=== PATIENT | female | born 1945 | race Caucasian/White ===

== ENCOUNTER 2019-10-29 06:29 | Day surgery (SDC) | payer OTHER ==
[2019-10-24 11:20] VITALS: BMI 21.7
--- NOTE | 2019-10-29 07:21 | HP ---
CHIEF COMPLAINT: Major depressive disorder PCP: Dr. Valles, [facility], Oncologist: Dr. Matthew Frausto, [facility] [place] Primary Psychiatrist: Stevie Eaton HISTORY OF PRESENT ILLNESS: 74 year-old female with a PMH significant for peritoneal carcinometosis (on avastrin q3w at [facility] [place]), h/o DVT and PE on Eliquis, and major depressive disorder /anxiety with a previous in-patient psych hospitalization in April 2019 ([facility]). She presents today for her first ECT treatment. Recent Events: * none reported PAST MEDICAL HISTORY: Peritoneal carcinometosis DVT 2018 PE 2018 Major depression Anxiety PAST SURGICAL HISTORY: Partial hysterectomy 2017 Total hysterectomy 2018 Social History: , lives with family Smoking: never Alcohol: no Drugs:no Allergies No Known Drug Allergies Allergy (Verified 10/24/19 10:55) HOME MEDICATIONS: Home Medications Medication Instructions Recorded Atorvastatin Ca [Lipitor] 10 mg PO HS 10/24/19 Brexpiprazole [Rexulti] 0.5 mg PO HS 10/24/19 Bupropion HCl [Bupropion Xl] 150 mg PO DAILY 10/24/19 Magnesium Oxide [Magnesium] 400 mg PO HS 10/24/19 Melatonin/Pyridoxine HCl (B6) 2 each PO HS 10/24/19 [Melatonin 3 mg Tablet] Pantoprazole Sodium 40 mg PO DAILY PRN 10/24/19 Rivaroxaban [Xarelto -] 20 mg PO DAILY 10/24/19 Sennosides [Senokot] 8.6 mg PO DAILY PRN 10/24/19 Travoprost [Travatan Z] 5 ml OU HS 10/24/19 Vilazodone Hydrochloride [Viibryd] 40 mg PO DAILY 10/24/19 clonazePAM [Klonopin -] 0.5 mg PO TID PRN 10/24/19 REVIEW OF SYSTEMS CONSTITUTIONAL: Absent: fever, chills, diaphoresis, generalized weakness, malaise, loss of appetite, weight change HEENT: Absent: rhinorrhea, nasal congestion, throat pain, throat swelling, difficulty swallowing, mouth swelling, ear pain, eye pain, visual changes CARDIOVASCULAR: Absent: chest pain, syncope, palpitations, irregular heart rate, lightheadedness , peripheral edema RESPIRATORY: Absent: cough, shortness of breath, dyspnea with exertion, orthopnea, wheezing, stridor, hemoptysis GASTROINTESTINAL: Absent: abdominal pain, abdominal distension, nausea, vomiting, diarrhea, constipation, melena, hematochezia GENITOURINARY: Absent: dysuria, frequency, urgency, hesitancy, hematuria, flank pain, genital pain MUSCULOSKELETAL: Absent: myalgia, arthralgia, joint swelling, back pain, neck pain SKIN: Absent: rash, itching, pallor HEMATOLOGIC/IMMUNOLOGIC: Absent: easy bleeding, easy bruising, lymphadenopathy, frequent infections ENDOCRINE: Absent: unexplained weight gain, unexplained weight loss, heat intolerance, cold intolerance NEUROLOGIC: Absent: headache, focal weakness or paresthesias, dizziness, unsteady gait, seizure, mental status changes, bladder or bowel incontinence PHYSICAL EXAMINATION Vital Signs - 24 hr 10/29/19 07:01 Temperature 97.9 F Pulse Rate 108 H Respiratory 18 Rate Blood Pressure 125/82 O2 Sat by Pulse 98 Oximetry (%) GENERAL: Awake, alert, and fully oriented, in no acute distress. HEAD: Normal with no signs of trauma. EYES: Pupils equal, round and reactive to light, sclera anicteric, conjunctiva clear. LUNGS: Breath sounds equal, clear to auscultation bilaterally. No wheezes, and no crackles. No accessory muscle use. HEART: Regular rate and rhythm, normal S1 and S2 ABDOMEN: Soft, nontender, not distended MUSCULOSKELETAL: Normal range of motion at all joints. No bony deformities or tenderness. No CVA tenderness. UPPER EXTREMITIES: 2+ pulses, warm, well-perfused. No cyanosis. No clubbing. No peripheral edema. LOWER EXTREMITIES: 2+ pulses, warm, well-perfused. No calf tenderness. No peripheral edema. NEUROLOGICAL: Cranial nerves II-XII intact. Normal speech. ASSESSMENT/PLAN: 74 year-old female with a PMH significant for peritoneal carcinometosis (on avastrin q3w at [facility] [place]), h/o DVT and PE on Eliquis, and major depressive disorder /anxiety with a previous in-patient psych hospitalization in April 2019 ([facility]). She presents today for her first ECT treatment. Cardiac --no cardiac history --Revised Cardiac Risk Index for Pre-Operative Risk: 0 points, 0.4% risk of major cardiac event Pulmonary --no pulmonary history Neurological --no neurological or neurosurgical history; no history of trauma Anesthesia --no reported problems with anesthesia ECT is a low risk procedure. The relative benefits of the planned procedure outweigh the relative risks for this patient at this time. Visit type - Emergency Visit Emergency Visit: No - New Patient This patient is new to me today: Yes Date on this admission: 10/29/19 - Critical Care Critical Care patient: No
[2019-10-29] MEDS ORDERED: KETAMINE HCL 500 MG/10 ML VIAL ONE (08:16)
[2019-10-29 09:47] VITALS: TEMP 97.5
[2019-10-29 10:12] VITALS: BP 142/82; PULSE 100
== END 2019-10-29 10:10 | disposition home or self-care (01) ==
LOC: FECT 06:29
PROVIDERS: ATTEND Psychiatry & Neurology Psychiatry
PROC: GZB4ZZZ Other Electroconvulsive Therapy (ICD-10-PCS; principal; 2019-10-29 08:15)
DX: F33.2 Major depressive disorder, recurrent severe without psychotic features (principal)
CPT/HCPCS: 90870; 94760

== ENCOUNTER 2019-10-31 05:41 | Day surgery (SDC) | payer OTHER ==
[2019-10-31 06:40] VITALS: BMI 21.7
[2019-10-31] MEDS ORDERED: KETAMINE HCL 500 MG/10 ML VIAL ONE (06:57)
[2019-10-31] MEDS ORDERED: MIDAZOLAM HCL 2 MG/2 ML SINGLE DOSE VIAL IVPUSH ONE (07:33)
[2019-10-31 09:20] VITALS: TEMP 97.7
[2019-10-31 09:24] VITALS: PULSE 100
[2019-10-31 09:28] VITALS: BP 145/75
== END 2019-10-31 09:05 | disposition home or self-care (01) ==
LOC: FECT 05:41
PROVIDERS: ATTEND Psychiatry & Neurology Psychiatry
PROC: GZB4ZZZ Other Electroconvulsive Therapy (ICD-10-PCS; principal; 2019-10-31 07:15)
DX: F32.9 Major depressive disorder, single episode, unspecified (principal)
CPT/HCPCS: 90870; 94760

== ENCOUNTER 2019-11-04 05:42 | Day surgery (SDC) | payer OTHER ==
[2019-10-25 14:08] VITALS: BMI 21.7
[2019-11-04 06:50] VITALS: TEMP 98
[2019-11-04] MEDS ORDERED: ONDANSETRON 4 MG/2 ML VIAL IVPUSH PRN (06:50)
[2019-11-04] MEDS ORDERED: oxyCODONE HCL 5 MG TABLET PO PRN (06:50)
[2019-11-04] MEDS ORDERED: LACTATED RINGERS SOLUTION 1,000 ML IV SCH (07:00)
[2019-11-04] MEDS ORDERED: KETAMINE HCL 500 MG/10 ML VIAL ONE (07:29)
[2019-11-04] MEDS ORDERED: MIDAZOLAM HCL 2 MG/2 ML SINGLE DOSE VIAL ONE (07:55)
[2019-11-04 09:04] VITALS: PULSE 100
[2019-11-04 10:25] VITALS: BP 130/79
== END 2019-11-04 10:20 | disposition home or self-care (01) ==
LOC: FECT 05:42
PROVIDERS: ATTEND Psychiatry & Neurology Psychiatry
PROC: GZB4ZZZ Other Electroconvulsive Therapy (ICD-10-PCS; principal; 2019-11-04 07:30)
DX: F33.2 Major depressive disorder, recurrent severe without psychotic features (principal)
CPT/HCPCS: 90870; 94760

== ENCOUNTER 2019-11-06 05:41 | Day surgery (SDC) | payer OTHER ==
[2019-10-31 10:24] VITALS: BMI 21.7
[2019-11-06] MEDS ORDERED: MIDAZOLAM HCL 2 MG/2 ML SINGLE DOSE VIAL ONE (06:55)
[2019-11-06] MEDS ORDERED: KETAMINE HCL 500 MG/10 ML VIAL ONE (07:06)
[2019-11-06 07:57] VITALS: TEMP 98.3
[2019-11-06 08:32] VITALS: PULSE 110
[2019-11-06 09:28] VITALS: BP 122/76
== END 2019-11-06 09:13 | disposition home or self-care (01) ==
LOC: FECT 05:41
PROVIDERS: ATTEND Psychiatry & Neurology Psychiatry
PROC: GZB4ZZZ Other Electroconvulsive Therapy (ICD-10-PCS; principal; 2019-11-06 07:00)
DX: F32.9 Major depressive disorder, single episode, unspecified (principal)
CPT/HCPCS: 90870; 94760

== ENCOUNTER 2019-11-08 05:49 | Day surgery (SDC) | payer OTHER ==
[2019-10-31 10:29] VITALS: BMI 21.7
[2019-11-08] MEDS ORDERED: KETAMINE HCL 500 MG/10 ML VIAL ONE (07:07)
[2019-11-08] MEDS ORDERED: MIDAZOLAM HCL 2 MG/2 ML SINGLE DOSE VIAL ONE (07:08)
[2019-11-08 08:33] VITALS: TEMP 97.8
[2019-11-08 08:55] VITALS: BP 141/81; PULSE 104
[2019-11-08] MEDS ORDERED: ONDANSETRON 4 MG/2 ML VIAL IVPUSH PRN (09:39)
[2019-11-08] MEDS ORDERED: LACTATED RINGERS SOLUTION 1,000 ML IV SCH (09:45)
== END 2019-11-08 09:40 | disposition home or self-care (01) ==
LOC: FECT 05:49
PROVIDERS: ATTEND Psychiatry & Neurology Psychiatry
PROC: GZB4ZZZ Other Electroconvulsive Therapy (ICD-10-PCS; principal; 2019-11-08 07:30)
DX: F32.9 Major depressive disorder, single episode, unspecified (principal)
CPT/HCPCS: 90870; 94760

== ENCOUNTER 2019-11-11 05:38 | Day surgery (SDC) | payer OTHER ==
[2019-10-31 12:00] VITALS: BMI 21.7
[2019-11-11] MEDS ORDERED: LACTATED RINGERS SOLUTION 1,000 ML IV SCH (07:00)
[2019-11-11] MEDS ORDERED: KETAMINE HCL 500 MG/10 ML VIAL ONE (07:22)
[2019-11-11] MEDS ORDERED: MIDAZOLAM HCL 2 MG/2 ML SINGLE DOSE VIAL ONE (07:23)
[2019-11-11 08:22] VITALS: TEMP 97.7
[2019-11-11 10:15] VITALS: BP 133/73; PULSE 102
== END 2019-11-11 10:10 | disposition home or self-care (01) ==
LOC: FECT 05:38
PROVIDERS: ATTEND Psychiatry & Neurology Psychiatry
PROC: GZB4ZZZ Other Electroconvulsive Therapy (ICD-10-PCS; principal; 2019-11-11 07:00)
DX: F33.2 Major depressive disorder, recurrent severe without psychotic features (principal)
CPT/HCPCS: 90870; 94760

== ENCOUNTER 2019-11-13 05:36 | Day surgery (SDC) | payer OTHER ==
[2019-10-31 11:20] VITALS: BMI 21.7
[2019-11-13] MEDS ORDERED: MIDAZOLAM HCL 2 MG/2 ML SINGLE DOSE VIAL ONE (07:05)
[2019-11-13] MEDS ORDERED: KETAMINE HCL 500 MG/10 ML VIAL ONE (07:06)
[2019-11-13] MEDS ORDERED: ONDANSETRON 4 MG/2 ML VIAL IVPUSH PRN (08:54)
[2019-11-13] MEDS ORDERED: LACTATED RINGERS SOLUTION 1,000 ML IV SCH (09:00)
[2019-11-13 10:07] VITALS: BP 139/74; PULSE 100; TEMP 97.8
== END 2019-11-13 09:30 | disposition home or self-care (01) ==
LOC: FECT 05:36
PROVIDERS: ATTEND Psychiatry & Neurology Psychiatry
PROC: GZB4ZZZ Other Electroconvulsive Therapy (ICD-10-PCS; principal; 2019-11-13 07:00)
DX: F32.9 Major depressive disorder, single episode, unspecified (principal)
CPT/HCPCS: 90870; 94760

== ENCOUNTER 2019-11-15 05:42 | Day surgery (SDC) | payer OTHER ==
[2019-10-31 12:32] VITALS: BMI 21.7
[2019-11-15] MEDS ORDERED: KETAMINE HCL 500 MG/10 ML VIAL ONE (07:22)
[2019-11-15] MEDS ORDERED: MIDAZOLAM HCL 2 MG/2 ML SINGLE DOSE VIAL ONE (07:23)
[2019-11-15 08:15] VITALS: TEMP 98.3
[2019-11-15 08:57] VITALS: BP 122/78; PULSE 99
== END 2019-11-15 09:17 | disposition home or self-care (01) ==
LOC: FECT 05:42
PROVIDERS: ATTEND Psychiatry & Neurology Psychiatry
PROC: GZB4ZZZ Other Electroconvulsive Therapy (ICD-10-PCS; principal; 2019-11-15 07:00)
DX: F32.9 Major depressive disorder, single episode, unspecified (principal)
CPT/HCPCS: 90870; 94760

== ENCOUNTER 2019-11-18 05:42 | Day surgery (SDC) | payer OTHER ==
[2019-11-11 17:17] VITALS: BMI 21.7
[2019-11-18] MEDS ORDERED: MIDAZOLAM HCL 2 MG/2 ML SINGLE DOSE VIAL ONE (07:51)
[2019-11-18] MEDS ORDERED: KETAMINE HCL 500 MG/10 ML VIAL ONE (07:51)
[2019-11-18] MEDS ORDERED: ONDANSETRON 4 MG/2 ML VIAL IVPUSH PRN (08:02)
[2019-11-18] MEDS ORDERED: ACETAMINOPHEN 325 MG TABLET (FP) PO PRN (08:02)
[2019-11-18 09:01] VITALS: TEMP 98.2
[2019-11-18 09:38] VITALS: BP 137/85; PULSE 104
== END 2019-11-18 09:42 | disposition home or self-care (01) ==
LOC: FECT 05:42
PROVIDERS: ATTEND Psychiatry & Neurology Psychiatry
PROC: GZB4ZZZ Other Electroconvulsive Therapy (ICD-10-PCS; principal; 2019-11-18 07:00)
DX: F33.2 Major depressive disorder, recurrent severe without psychotic features (principal)
CPT/HCPCS: 90870; 94760

== ENCOUNTER → 2019-11-22 | Day surgery (SDC) | payer OTHER ==
[2019-11-14 10:12] VITALS: BMI 21.7
[~2019-11-22] MED LIST: KETAMINE HCL 500 MG/10 ML VIAL ONE; LACTATED RINGERS SOLUTION 1,000 ML IV SCH; MIDAZOLAM HCL 2 MG/2 ML SINGLE DOSE VIAL ONE; ONDANSETRON 4 MG/2 ML VIAL IVPUSH PRN
[2019-11-22 07:59] VITALS: TEMP 98.3
[2019-11-22 10:46] VITALS: BP 142/64; PULSE 112
== END | disposition home or self-care (01) ==
LOC: FECT 05:43
PROVIDERS: ATTEND Psychiatry & Neurology Psychiatry
PROC: GZB4ZZZ Other Electroconvulsive Therapy (ICD-10-PCS; principal; 2019-11-22 07:00)
DX: F33.2 Major depressive disorder, recurrent severe without psychotic features (principal)
CPT/HCPCS: 90870; 94760

== ENCOUNTER 2019-11-27 05:38 | Day surgery (SDC) | payer OTHER ==
[2019-11-18 16:40] VITALS: BMI 21.7
[2019-11-27 07:41] VITALS: TEMP 98.2
[2019-11-27] MEDS ORDERED: LACTATED RINGERS SOLUTION 1,000 ML IV SCH (07:45)
[2019-11-27] MEDS ORDERED: MIDAZOLAM HCL 2 MG/2 ML SINGLE DOSE VIAL ONE (08:23)
[2019-11-27] MEDS ORDERED: KETAMINE HCL 500 MG/10 ML VIAL ONE (08:23)
[2019-11-27 09:40] VITALS: BP 155/75
[2019-11-27 10:18] VITALS: PULSE 108
== END 2019-11-27 10:00 | disposition home or self-care (01) ==
LOC: FECT 05:38
PROVIDERS: ATTEND Psychiatry & Neurology Psychiatry
PROC: GZB4ZZZ Other Electroconvulsive Therapy (ICD-10-PCS; principal; 2019-11-27 07:00)
DX: F32.9 Major depressive disorder, single episode, unspecified (principal)
CPT/HCPCS: 90870; 94760

== ENCOUNTER 2019-11-29 05:48 | Day surgery (SDC) | payer OTHER ==
[2019-11-28 14:04] VITALS: BMI 21.7
[2019-11-29 07:23] VITALS: TEMP 98
[2019-11-29] MEDS ORDERED: KETAMINE HCL 500 MG/10 ML VIAL ONE (08:39)
[2019-11-29] MEDS ORDERED: MIDAZOLAM HCL 2 MG/2 ML SINGLE DOSE VIAL ONE (08:47)
[2019-11-29 10:30] VITALS: BP 147/84; PULSE 113
== END 2019-11-29 10:55 | disposition home or self-care (01) ==
LOC: FECT 05:48
PROVIDERS: ATTEND Psychiatry & Neurology Psychiatry
PROC: GZB4ZZZ Other Electroconvulsive Therapy (ICD-10-PCS; principal; 2019-11-29 08:15)
DX: F33.2 Major depressive disorder, recurrent severe without psychotic features (principal)
CPT/HCPCS: 90870; 94760